=== PATIENT | male | born 2000 | race African-American/Black ===

== ENCOUNTER 2021-12-07 23:11 | Emergency (ER) | payer SELFPAY ==
[~2021-12-07] VITALS: Wt 86.4 kg
[2021-12-08 00:22] VITALS: BP 128/66; PULSE 74; TEMP 98.1
== END 2021-12-08 00:29 | disposition home or self-care (01) ==
LOC: COL.ER 23:11
DX: S61.210A Laceration without foreign body of right index finger without damage to nail, initial encounter (principal); S61.212A Laceration without foreign body of right middle finger without damage to nail, initial encounter; W26.8XXA Contact with other sharp object(s), not elsewhere classified, initial encounter; Y93.89 Activity, other specified